=== PATIENT | male | born 1950 | race Caucasian/White ===

== ENCOUNTER → 2017-01-20 | Outpatient (CLI) | payer OTHER ==
[~2017-01-20] MED LIST: ELVITAB PO; HYDR-3111 PO; HYDR-3533 PO; TAMS0.4C67 PO; WALKER STANDARD; ZOVI200C24 PO
--- NOTE | 2017-01-20 10:42 | EC ---
Study Study Date:01/20/2017 STUDY CONCLUSIONS SUMMARY - Procedure narrative: Transthoracic echocardiography. Image quality was fair. Scanning was performed from the parasternal, apical, and subcostal acoustic windows. - Left ventricle: The cavity size was normal. Wall thickness was normal. Systolic function was low normal. The estimated ejection fraction was 50%. Although no diagnostic regional wall motion abnormality was identified, this possibility cannot be completely excluded on the basis of this study. - Mitral valve: Mild regurgitation. - Left atrium: The atrium was mildly dilated. - Right atrium: The atrium was mildly dilated. - Tricuspid valve: Mild regurgitation. If LV function is below 40, please consider prescribing an ACEI or ARB or document rationale for non-use. PROCEDURE DATA STUDY STATUS: Elective. Procedure: Transthoracic echocardiography. Image quality was fair. Scanning was performed from the parasternal, apical, and subcostal acoustic windows. Study completion: The patient tolerated the procedure well. Transthoracic echocardiography. M-mode, complete 2D, complete spectral Doppler, and color Doppler. Patient status: Inpatient. CARDIAC ANATOMY LEFT VENTRICLE: The cavity size was normal. Wall thickness was normal. Systolic function was low normal. The estimated ejection fraction was 50%. Although no diagnostic regional wall motion abnormality was identified, this possibility cannot be completely excluded on the basis of this study. AORTIC VALVE: Trileaflet; normal thickness leaflets. Doppler: Transvalvular velocity was within the normal range. There was no stenosis. No regurgitation. AORTA: Aortic root: The aortic root was normal in size. MITRAL VALVE: Structurally normal valve. Doppler: Transvalvular velocity was within the normal range. There was no evidence for stenosis. Mild regurgitation. LEFT ATRIUM: The atrium was mildly dilated. RIGHT VENTRICLE: The cavity size was normal. Wall thickness was normal. PULMONIC VALVE: Doppler: Transvalvular velocity was within the normal range. There was no evidence for stenosis. No regurgitation. TRICUSPID VALVE: Structurally normal valve. Doppler: Transvalvular velocity was within the normal range. Mild regurgitation. PULMONARY ARTERY: The main pulmonary artery was normal-sized. Systolic pressure was within the normal range. RIGHT ATRIUM: The atrium was mildly dilated. PERICARDIUM: There was no pericardial effusion. SYSTEMIC VEINS: Inferior vena cava: The vessel was normal in size. BASIC MEASUREMENTS ADULT NORMAL Left ventricle LV internal dimension, ED, chordal level, 47 mm 43-52 PLAX LV posterior wall thickness, ED 7.52 mm IVS/LVPW ratio, ED 1.25 <1.3 Ventricular septum Septal thickness, ED 9.42 mm Aortic valve Leaflet separation 21 mm 15-26 Left atrium Anterior-posterior dimension 39 mm Right ventricle RV internal dimension, ED, PLAX 26.4 mm 19-38 BASIC MEASUREMENTS ADULT NORMAL Aortic valve Leaflet separation 21 mm 15-26 Aorta Root diameter, ED 30 mm 20-37 DOPPLER MEASUREMENTS ADULT NORMAL Mitral valve Peak E-wave velocity 70.1 cm/s Peak A-wave velocity 28.6 cm/s Peak E/A ratio 2.5 Maximal regurgitant velocity 521 cm/s Tricuspid valve Regurgitant peak velocity 266 cm/s Peak RV-RA gradient, S 28 mm Hg Maximal regurgitant velocity 266 cm/s LEGEND: Mean values are shown as u=mean value. Asterisk (*) velez values outside specified normal range. Prepared and signed by Kyree Goodwin [id number]
== END ==
LOC: HECH 08:50
PROVIDERS: ATTEND Specialist
DX: I48.91 Unspecified atrial fibrillation (principal)
CPT/HCPCS: 93306